=== PATIENT | female | born 1980 | race Caucasian/White ===

== ENCOUNTER 2016-07-27 10:42 | Observation (INO) | payer OTHER ==
[~2016-07-27] VITALS: Ht 165.1 cm; Wt 104.0 kg
[~2016-07-27 10:42] MED LIST: ADVIL,NUPRIN,M200 MG PO; ADVIL200 MG PO; ASPIR-LOW81 MG PO; LISINOPRIL-HCT1 EACH PO; MICROGESTIN1 EACH PO; Normodyne,Trandate PO; Tylenol Extra Streng PO
[2016-07-27 11:21] LABS: HEMATOCRIT 39.1 % (36.0-46.0); MCH 27.9 PG (29.0-34.0); MCHC 33.5 G/DL (30.0-36.0); MCV 83.2 FL (83-99); MEAN PLAT.VOLUME 9.3 uM^3 (9.5-12.4); PLATELET COUNT 341 K/uL (156-360); RBC DIS.WIDTH-SD 39.4 % (39-53); WHITE BLOOD COUNT 6.6 K/uL (4.1-10.2)
[2016-07-27 11:31] LABS: CHLORIDE 106 mEq/L (99-109); POTASSIUM 3.9 mEq/L (3.7-5.4); SODIUM 139 mEq/L (136-147)
[2016-07-27 11:32] LABS: GLUCOSE 194 mg/dL (70-99)
[2016-07-27 11:34] LABS: ANION GAP 14 MEQ/L (2-14)
[2016-07-27 11:36] LABS: GFR ESTIMATE (CALCULATED) > 59 mL/min/
[2016-07-27 11:37] LABS: UREA NITROGEN (BUN) 16 mg/dL (9-23)
[2016-07-27 11:44] LABS: TROP-I INTERPRETATION NEGATIVE; TROPONIN-I < 0.01 ng/mL (0.0-0.30)
[2016-07-27] MEDS ORDERED: BLISOVI FE 1.51 EACH PO (14:54)
[2016-07-27] MEDS ORDERED: GLIMEPIRIDE1 MG PO (14:55)
[2016-07-27] MEDS ORDERED: FENOFIBRATE145 M1 PO (14:55)
[2016-07-27] MEDS ORDERED: METFORMIN HCL500 M1 PO (14:55)
[2016-07-27] MEDS ORDERED: DIOVAN HCT 31 TABLE1 PO (14:55)
[2016-07-27] MEDS ORDERED: CLONAZEPAM0.5 MG PO (14:55)
[2016-07-27] MEDS ORDERED: ZANTAC150 MG PO (14:55)
[2016-07-27 16:51] LABS: POINT-OF-CARE METER ID UU14100415
[2016-07-27 18:09] VITALS: BP 133/80
[2016-07-27 18:24] LABS: TROP-I INTERPRETATION NEGATIVE; TROPONIN-I < 0.01 ng/mL (0.0-0.30)
[2016-07-27 19:45] VITALS: BP 135/83
[2016-07-27 21:10] LABS: POINT-OF-CARE METER ID UU14162513
[2016-07-27 23:54] LABS: TROP-I INTERPRETATION NEGATIVE; TROPONIN-I < 0.01 ng/mL (0.0-0.30)
[2016-07-28 00:42] VITALS: BP 138/79
[2016-07-28 04:22] VITALS: BP 139/81
[2016-07-28 07:34] VITALS: BP 128/82
[2016-07-28 08:42] LABS: POINT-OF-CARE METER ID UU14162513
[2016-07-28 11:36] VITALS: BP 152/90
[2016-07-28 12:22] LABS: POINT-OF-CARE METER ID UU13113831
== END 2016-07-28 13:39 | disposition home or self-care (01) ==
LOC: EME 10:42 → 5WEST 15:09
PROVIDERS: Internal Medicine; Physician Assistant
DX: R07.89 Other chest pain (principal); R00.2 Palpitations; R42 Dizziness and giddiness; I10 Essential (primary) hypertension; E78.00 Pure hypercholesterolemia, unspecified; E11.9 Type 2 diabetes mellitus without complications; E66.9 Obesity, unspecified; E78.5 Hyperlipidemia, unspecified; Z68.38 Body mass index [BMI] 38.0-38.9, adult
CPT/HCPCS: 71020; 71275; 80048; 82948; 84484; 85027; 85379; 93005; 99281; 99285; G0378; J1815

== ENCOUNTER 2017-09-25 09:06 | Emergency (ER) | payer OTHER ==
[~2017-09-25] VITALS: Ht 165.1 cm; Wt 99.0 kg
[~2017-09-25 09:06] MED LIST changes: +BLISOVI FE 1.51 EACH PO; +CLONAZEPAM0.5 MG PO; +DIOVAN HCT 31 TABLE1 PO; +FENOFIBRATE145 M1 PO; +GLIMEPIRIDE1 MG PO; +METFORMIN HCL500 M1 PO; +ZANTAC150 MG PO
[2017-09-25] MEDS ORDERED: FLEXERIL10 MG PO (13:02)
[2017-09-25] MEDS ORDERED: NORCO 5/3251 TABLET PO (13:02)
[2017-09-25 13:06] VITALS: BP 146/115
== END 2017-09-25 13:15 | disposition home or self-care (01) ==
LOC: EME 09:06
DX: M54.16 Radiculopathy, lumbar region (principal); I10 Essential (primary) hypertension
CPT/HCPCS: 99281; 99283; J1100